=== PATIENT | female | born 1955 | race Caucasian/White ===

== ENCOUNTER 2017-07-24 07:20 | Emergency (ER) | payer OTHER ==
[2017-07-24 07:37] VITALS: BMI 22.8
[2017-07-24] MEDS ORDERED: SODIUM CHLORIDE 1,000 ML IV STA (08:14)
[2017-07-24] MEDS ORDERED: ACETAMINOPHEN 1000 MG/100 ML VIAL (NON FORMULARY) IVPB ONE (08:14)
[2017-07-24] MEDS ORDERED: ACETAMINOPHEN INJECTION 100 ML IVPB ONE (08:15)
[2017-07-24 08:38] LABS: BASO % 0.8 % (0-2.0); EOS % 4.7 % (0-4.5); HEMATOCRIT 47.9 % (32.4-45.2); HEMOGLOBIN 16.6 GM/dL (10.7-15.3); LYMPH % 19.4 % (8-40); MCH 28.5 pg (25.7-33.7); MCHC 34.6 g/dl (32.0-36.0); MEAN CELL VOLUME 82.4 fl (80-96); MEAN PLT VOLUME 7.9 fl (7.5-11.1); MONO % 11.4 % (3.8-10.2); NEUT % 63.7 % (42.8-82.8); PLATELET COUNT 173 K/MM3 (134-434); RBC 5.81 M/mm3 (3.60-5.2); RDW 13.7 % (11.6-15.6); WHITE BLOOD COUNT 8.8 K/mm3 (4.0-10.0)
[2017-07-24 09:03] LABS: ALBUMIN 3.9 g/dl (3.4-5.0); ALK PHOS 143 U/L (45-117); ANION GAP 14 (8-16); BILIRUBIN,TOTAL 0.7 mg/dL (0.2-1.0); BLOOD UREA NITROGEN 12 mg/dL (7-18); CALCIUM 9.4 mg/dL (8.5-10.1); CHLORIDE 104 mmol/L (98-107); CO2 22 mmol/L (21-32); GLUCOSE,RANDOM 123 mg/dL (74-106); POTASSIUM 3.7 mmol/L (3.5-5.1); SGOT/AST 22 U/L (15-37); SGPT/ALT 29 U/L (12-78); SODIUM 140 mmol/L (136-145); TOT PROT 8.2 g/dl (6.4-8.2)
--- NOTE | 2017-07-24 09:22 | PDOC ---
History of Present Illness - General Chief Complaint: Cold Symptoms Stated Complaint: COLD SYMPTOMS Time Seen by Provider: 07/24/17 07:48 History Source: Patient Exam Limitations: No Limitations - History of Present Illness Initial Comments: 07/24/17 08:44 62-year-old female presents with headache, sore throat, myalgia, chills and productive cough which she describes as yellowish phlegm worsened in the a.m. hours for the past 2 days. Patient states is not taking pain for the above and decided come to the ER. Patient denies chest pain but does complain of bilateral rib pain worsened with coughing and deep breathing. Patient denies recent travel, recent illness and states did have 2 grandchildren with similar symptoms last week. Patient denies shortness of breath, visual changes, dizziness, or inability to eat. Patient also has no urinary or bowel complaints. Timing/Duration: reports: constant Severity: reports: moderate Possible Cause: Yes: no prior episodes Modifying Factors: improves with: coughing Associated Symptoms: reports: chest pain/soreness, cough, fever/chills, headache , muscle aches, sore throat (mild) Past History - Past Medical History Allergies/Adverse Reactions: Allergies Allergy/AdvReac Type Severity Reaction Status Date / Time acetaminophen [From Percocet] Allergy Verified 07/24/17 07:31 oxycodone AdvReac Intermediate Nausea Verified 07/24/17 07:26 Home Medications: Ambulatory Orders Levothyroxine [Synthroid -] 25 mcg PO DAILY 11/09/14 Gabapentin [Neurontin -] 300 mg PO Q8H 03/28/17 Meloxicam [Mobic] 7.5 mg PO BID 03/28/17 Nortriptyline HCl [Pamelor -] 25 mg PO HS 03/28/17 Ergocalciferol (Vitamin D2) [Vitamin D2] 50,000 unit PO Q7D 06/08/17 Medical Marijuana [Medical Marijuana Oil] 1 cap PO DAILY PRN 06/08/17 Anemia: No Asthma: Yes Cancer: No Cardiac Disorders: No CVA: No COPD: No CHF: No DVT: No Dementia: No Diabetes: No Dialysis: No GI Disorders: No Disorders: No HTN: No Hypercholesterolemia: No Kidney Stones: No Liver Disease: No Psychiatric Problems: No Seizures: No Thyroid Disease: Yes (on meds) Lung CA: No - Surgical History Abdominal Surgery: No Appendectomy: No Cardiac Surgery: Yes (left cataract left eye 11/02) Cholecystectomy: Yes Lung Surgery: No Neurologic Surgery: No Orthopedic Surgery: Yes (RIGHT SHOULDER, cervical fusion 2011) - Immunization History Immunization Up to Date: Yes - Suicide/Smoking/Psychosocial Hx Smoking History: Never smoked Have you smoked in the past 12 months: No Information on smoking cessation initiated: No Hx Alcohol Use: No Drug/Substance Use Hx: No Substance Use Type: None Hx Substance Use Treatment: No Patient Lives Alone: No Respiratory Specific PMHX - Complaint Specific PMHX Bronchitis: No Review of Systems - Review of Systems Able to Perform ROS?: Yes Constitutional: Yes: Chills, Weakness HEENTM: Yes: Throat Pain Respiratory: Yes: Cough, Productive cough Cardiac (ROS): No: Symptoms Reported ABD/GI: No: Symptoms Reported : No: Symptoms Reported Musculoskeletal: Yes: Back Pain, Joint Pain Integumentary: No: Symptoms Reported Neurological: Yes: Headache *Physical Exam - Vital Signs Last Vital Signs Temp Pulse Resp BP Pulse Ox 98.6 F 109 H 17 128/92 98 07/24/17 08:04 07/24/17 08:04 07/24/17 08:04 07/24/17 08:04 07/24/17 08:04 - Physical Exam General Appearance: Yes: Nourished, Appropriately Dressed. No: Apparent Distress HEENT: positive: EOMI, [place], TMs Normal, Pharynx Normal (dry) Neck: positive: Normal Thyroid, Supple. negative: Lymphadenopathy (R), Lymphadenopathy (L) Respiratory/Chest: positive: Lungs Clear (left lobe), Other (coarse breath to right base). negative: Respiratory Distress, Accessory Muscle Use, Wheezing Cardiovascular: positive: Regular Rhythm, Tachycardia. negative: Murmur Gastrointestinal/Abdominal: positive: Soft. negative: Tenderness Extremity: positive: Normal Capillary Refill Integumentary: positive: Normal Color, Warm, Moist Neurologic: positive: Motor Strength 5/5 (ambulatory) ED Treatment Course - LABORATORY CBC & Chemistry Diagram: 07/24/17 08:20 07/24/17 08:14 - RADIOLOGY Radiology Studies Ordered: Category Date Time Status CHEST PA & LAT [RAD] Stat Radiology 07/24/17 08:15 Ordered - Medications Given in the ED: ED Medications Discontinued Medications Generic Name Dose Route Start Last Admin Trade Name Freq PRN Reason Stop Dose Admin Acetaminophen 1,000 mg 07/24/17 08:14 07/24/17 08:17 Ofirmev Injection - IVPB 07/24/17 08:15 1,000 mg ONCE ONE Administration Medical Decision Making - Medical Decision Making 07/24/17 07:55 I complaints but was found to be slightly tachycardic and with coarse breath sounds to right lower lobe. Patient ordered for labs, IV fluids IV Tylenol and chest x-ray. We will check vital shortly. 07/24/17 10:42 Laboratory Tests 07/24/17 07/24/17 07/24/17 08:14 08:20 09:38 WBC 8.8 D Hgb 16.6 H Hct 47.9 H Plt Count 173 Neutrophils % 63.7 Sodium 140 Potassium 3.7 Chloride 104 Carbon Dioxide 22 Anion Gap 14 BUN 12 Creatinine 1.0 Random Glucose 123 H Calcium 9.4 AST 22 ALT 29 Urine Ketones Negative Urine Blood Negative Ur Leukocyte Esterase 1+ H Urine WBC (Auto) 8 Urine RBC (Auto) 4 Chest x-ray negative for acute findings. Patient has no urinary complaints. Will send urine culture. Patient's vitals improved. Patient to be discharged home with Tamiflu and will be treated empirically for influenza. 07/24/17 10:43 Selected Entries 07/24/17 09:56 Temperature 98.7 F Pulse Rate [ 85 Left] Respiratory 17 Rate Blood Pressure 111/58 [Right] O2 Sat by Pulse 98 Oximetry (%) *DC/Admit/Observation/Transfer Diagnosis at time of Disposition: Influenza-like illness - Discharge Dispostion Disposition: HOME Condition at time of disposition: Improved - Referrals Referrals: Dionne Ghosh [Primary Care Provider] - - Patient Instructions Printed Discharge Instructions: DI for Influenza -- Adult Additional Instructions: Please take Tamiflu as prescribed until completed. Please take Tylenol Motrin for fever and discomfort. Drink plenty of fluids and rest for the next 2 days. - Post Discharge Activity
[2017-07-24 10:11] LABS: URINE APPEARANCE CLEAR; URINE BILIRUBIN NEGATIVE (NEGATIVE); URINE BLOOD NEGATIVE (NEGATIVE); URINE COLOR YELLOW; URINE GLUCOSE (UA) NEGATIVE (NEGATIVE); URINE KETONE NEGATIVE (NEGATIVE); URINE NITRITE NEGATIVE (NEGATIVE); URINE PROTEIN NEGATIVE (NEGATIVE); URINE UROBILINOGEN NEGATIVE mg/dL (0.2-1.0)
[2017-07-24 10:12] LABS: URINE LEUK ESTERASE 1+ (NEGATIVE)
[2017-07-24 10:13] LABS: EPI CELLS RARE /HPF (FEW); URINE MUCUS RARE
[2017-07-24 11:21] VITALS: BP 116/63; PULSE 87; TEMP 98.6
== END 2017-07-24 11:17 | disposition home or self-care (01) ==
LOC: JER 07:20
PROC: 3E033NZ Introduction of Analgesics, Hypnotics, Sedatives into Peripheral Vein, Percutaneous Approach (ICD-10-PCS; principal; 2017-07-24)
PROC: 3E0337Z Introduction of Electrolytic and Water Balance Substance into Peripheral Vein, Percutaneous Approach (ICD-10-PCS; 2017-07-24)
DX: J11.1 Influenza due to unidentified influenza virus with other respiratory manifestations (principal)
CPT/HCPCS: 36415; 71046-TC-FY; 80053; 81003; 81015; 85025; 87086; 99284-25

== ENCOUNTER → 2018-04-03 | Day surgery (SDC) | payer OTHER | END | disposition home or self-care (01) | LOC: JRADIR 09:38 → JRADMRI 09:38 → EDSTATUS 10:00 | PROVIDERS: ATTEND Orthopaedic Surgery Hand Surgery | PROC: BP28YZZ Computerized Tomography (CT Scan) of Right Shoulder using Other Contrast (ICD-10-PCS; principal; 2018-04-03) | DX: M25.511 Pain in right shoulder (principal) | CPT/HCPCS: 23350; 73040-TC-FY; 73200-TC-RT ==

== ENCOUNTER 2018-05-26 00:32 | Emergency (ER) | payer OTHER ==
--- NOTE | 2018-05-26 00:46 | PDOC ---
History of Present Illness - General Stated Complaint: EAR PAIN Time Seen by Provider: 05/26/18 00:43 History Source: Patient Exam Limitations: No Limitations - History of Present Illness Initial Comments: 05/26/18 00:55 Best Contact: PCP:joseph Pmhx: Hypothyroid Pshx: Right shoulder arthroscopy, anterior cervical discectomy fusion and plating, lumbar discectomy, appendectomy laparoscopic cholecystectomy Allergies:Tylenol/oxycodone/hives FH:0 63-year-old female presents to the emergency department complaining of right ear pain 2 days. Pain is described as 4/10 dull constant nonradiating discomfort without fever, chills, nausea/vomiting, facial pains, rhinorrhea, nasal congestion, sore throat, chest pain, shortness of breath. Patient is a nondiabetic. Pt denies recent swimming or illness. Past History - Past Medical History Allergies/Adverse Reactions: Allergies Allergy/AdvReac Type Severity Reaction Status Date / Time acetaminophen [From Percocet] Allergy Verified 05/26/18 01:09 oxycodone AdvReac Intermediate Nausea Verified 05/26/18 01:09 Home Medications: Ambulatory Orders Levothyroxine [Synthroid -] 25 mcg PO DAILY 11/09/14 Medical Marijuana [Medical Marijuana Oil] 1 cap PO DAILY PRN 06/08/17 Diclofenac Sodium [Voltaren] 2 gm TP TID PRN #3 tube 03/14/18 Docusate Sodium [Colace -] 100 mg PO TID #90 capsule 03/14/18 Ergocalciferol (Vitamin D2) [Vitamin D2] 50,000 unit PO Q7D #4 capsule 03/14/18 Meloxicam [Mobic] 7.5 mg PO BID #60 tablet 03/14/18 Nortriptyline HCl [Pamelor -] 50 mg PO HS #30 capsule 03/14/18 Amoxicillin - [Amoxicillin 500mg Capsule -] 500 mg PO BID #14 capsule 05/26/18 Ofloxacin Otic [Floxin Otic -] 10 drop OS DAILY #100 drops 05/26/18 Anemia: No Asthma: Yes Cancer: No Cardiac Disorders: No CVA: No COPD: No CHF: No DVT: No Dementia: No Diabetes: No Dialysis: No GI Disorders: No Disorders: No HTN: No Hypercholesterolemia: No Kidney Stones: No Liver Disease: No Psychiatric Problems: No Seizures: No Thyroid Disease: Yes (on meds) Lung CA: No - Surgical History Abdominal Surgery: No Appendectomy: No Cardiac Surgery: Yes (left cataract left eye 11/02) Cholecystectomy: Yes Lung Surgery: No Neurologic Surgery: No Orthopedic Surgery: Yes (RIGHT SHOULDER, cervical fusion 2011) - Immunization History Immunization Up to Date: Yes - Suicide/Smoking/Psychosocial Hx Smoking History: Never smoked Have you smoked in the past 12 months: No Hx Alcohol Use: No Drug/Substance Use Hx: No Substance Use Type: None Hx Substance Use Treatment: No Review of Systems - Review of Systems Able to Perform ROS?: Yes Comments:: 05/26/18 00:53 GENERAL: Well developed, well nourished. Awake and alert. No acute distress. HEENT: Right ear ache Normocephalic, atraumatic. PERRLA, EOMI. No conjunctival pallor. Sclera are non- icteric. Moist mucous membranes. Oropharynx is clear. NECK: Supple. Full ROM. No JVD. Carotid pulses 2+ and symmetric, without bruits. No thyromegaly. No lymphadenopathy. CARDIOVASCULAR: Regular rate and rhythm. No murmurs, rubs, or gallops. Distal pulses are 2+ and symmetric. PULMONARY: No evidence of respiratory distress. Lungs clear to auscultation bilaterally. No wheezing, rales or rhonchi. ABDOMINAL: Soft. Non-tender. Non-distended. No rebound or guarding. No organomegaly. Normoactive bowel sounds. SKIN: Warm and dry. Normal capillary refill. No rashes. No jaundice. Is the patient limited Tajik proficient: No *Physical Exam - Physical Exam Comments: 05/26/18 00:52 GENERAL: Well developed, well nourished. Awake and alert. No acute distress. HEENT: Right canal slight swelling; TM bulging/erythema Normocephalic, atraumatic. PERRLA, EOMI. No conjunctival pallor. Sclera are non- icteric. Moist mucous membranes. Oropharynx is clear. NECK: Supple. Full ROM. No JVD. Carotid pulses 2+ and symmetric, without bruits. No thyromegaly. No lymphadenopathy. SKIN: Warm and dry. Normal capillary refill. No rashes. No jaundice. Procedure: earwick 1/2" iodoform packing *DC/Admit/Observation/Transfer Diagnosis at time of Disposition: Otitis externa Qualifiers: Otitis externa type: noninfectious Noninfectious otitis externa type: other type Chronicity: acute Laterality: right Qualified Code(s): H60.591 - Other noninfective acute otitis externa, right ear ROM (right otitis media) Qualifiers: Otitis media type: unspecified Qualified Code(s): H66.91 - Otitis media, unspecified, right ear - Discharge Dispostion Disposition: HOME Condition at time of disposition: Stable Decision to Admit order: No - Prescriptions Prescriptions: Amoxicillin - [Amoxicillin 500mg Capsule -] 500 mg PO BID #14 capsule Ofloxacin Otic [Floxin Otic -] 10 drop OS DAILY #100 drops - Referrals Referrals: Sd Chen MD [Primary Care Provider] - Ho Fuller MD [Staff Physician] - - Patient Instructions Printed Discharge Instructions: Otitis Externa, Middle Ear Infection Additional Instructions: Follow with your physician or the ENT noted on your discharge this week Return back to the emergency department for severe/persistent or worsening symptoms or any concerns take Motrin every 4-6 hours as needed for pain or fever - Post Discharge Activity
[2018-05-26 01:09] VITALS: BP 132/86; PULSE 94; TEMP 97.8; BMI 24.9
[2018-05-26] MEDS ORDERED: OFLOXACIN 0.3% OTIC SOLUTION 5 ML BOTTLE AD ONE (01:18)
== END 2018-05-26 02:16 | disposition home or self-care (01) ==
LOC: JER 00:32
DX: H60.501 Unspecified acute noninfective otitis externa, right ear (principal); H66.91 Otitis media, unspecified, right ear
CPT/HCPCS: 99281-25

== ENCOUNTER 2018-11-18 22:29 | Emergency (ER) | payer OTHER ==
[2018-11-18 22:33] VITALS: BMI 25.0
--- NOTE | 2018-11-19 00:31 | PDOC ---
History of Present Illness - General Chief Complaint: Vomiting/Diarrhea Stated Complaint: VOMITING Time Seen by Provider: 11/19/18 00:31 History Source: Patient - History of Present Illness Initial Comments: 11/19/18 00:33 63 year old female with nausea, vomiting and diarrhea after qatari food today with epigastric pain. + dizziness, denies fever/ chills, headache, urinary symptoms PMHX: hypothyroid Past History - Past Medical History Allergies/Adverse Reactions: Allergies Allergy/AdvReac Type Severity Reaction Status Date / Time acetaminophen [From Percocet] Allergy Verified 11/18/18 22:33 oxycodone AdvReac Intermediate Nausea Verified 11/18/18 22:33 Home Medications: Ambulatory Orders Levothyroxine [Synthroid -] 25 mcg PO DAILY 11/09/14 Medical Marijuana [Medical Marijuana Oil] 1 cap PO DAILY PRN 06/08/17 Ergocalciferol (Vitamin D2) [Vitamin D2] 50,000 unit PO Q7D #4 capsule 03/14/18 Diclofenac Sodium [Voltaren] 2 gm TP TID PRN #3 tube 08/08/18 Docusate Sodium [Colace -] 100 mg PO TID #90 capsule 08/08/18 Meloxicam [Mobic (Nf) -] 15 mg PO DAILY #30 tablet 08/08/18 Mirtazapine [Remeron -] 30 mg PO HS 08/08/18 Anemia: No Asthma: Yes Cancer: No Cardiac Disorders: No CVA: No COPD: No CHF: No DVT: No Dementia: No Diabetes: No Dialysis: No GI Disorders: No Disorders: No HTN: No Hypercholesterolemia: No Kidney Stones: No Liver Disease: No Psychiatric Problems: No Seizures: No Thyroid Disease: Yes (on meds) Lung CA: No - Surgical History Abdominal Surgery: No Appendectomy: No Cardiac Surgery: Yes (left cataract left eye 11/02) Cholecystectomy: Yes Lung Surgery: No Neurologic Surgery: No Orthopedic Surgery: Yes (RIGHT SHOULDER, cervical fusion 2011) - Immunization History Immunization Up to Date: Yes - Suicide/Smoking/Psychosocial Hx Smoking History: Never smoked Have you smoked in the past 12 months: No Hx Alcohol Use: No Drug/Substance Use Hx: No Substance Use Type: None Hx Substance Use Treatment: No Review of Systems - Review of Systems Able to Perform ROS?: Yes Is the patient limited Tristanian proficient: No Constitutional: No: Symptoms Reported, See HPI, Chills, Diaphoresis, Fever, Loss of Appetite, Malaise, Night Sweats, Weakness, Weight Stable, Unintentional Wgt. Loss, Unexplained wgt Loss, Other ABD/GI: Yes: Diarrhea, Nausea, Vomiting, Abdominal cramping : No: Symptoms Reported, See HPI, Burning, Dysuria, Discharge, Frequency, Flank Pain, Hematuria, Incontinence, Pain, Urgency, Testicular Mass, Testicular Swelling, Lesions, Testicular Pain, Other Musculoskeletal: No: Symptoms Reported, See HPI, Back Pain, Gout, Joint Pain, Joint Swelling, Muscle Pain, Muscle Weakness, Neck Pain, Joint Stiffness, Other *Physical Exam - Vital Signs Last Vital Signs Temp Pulse Resp BP Pulse Ox 97.5 F L 79 18 117/74 99 11/18/18 22:31 11/18/18 22:31 11/18/18 22:31 11/18/18 22:31 11/18/18 22:31 - Physical Exam General Appearance: Yes: Appropriately Dressed Respiratory/Chest: positive: Lungs Clear, Normal Breath Sounds Cardiovascular: positive: Regular Rhythm, Regular Rate Gastrointestinal/Abdominal: positive: Tender (epigastric area), Soft, Increased Bowel Sounds Extremity: positive: Normal Capillary Refill, Normal Inspection, Normal Range of Motion, Other (dry lips) Integumentary: positive: Normal Color, Dry, Warm Neurologic: positive: Fully Oriented, Alert ED Treatment Course - LABORATORY CBC & Chemistry Diagram: 11/19/18 00:45 11/19/18 00:45 Progress Note - Progress Note Progress Note: A: gastroenteritis; dehydration P: labs ivf zofran famotidine EKG Medical Decision Making - Medical Decision Making 11/19/18 03:16 tolerated PO. reports feeling better. will d.c home *DC/Admit/Observation/Transfer Diagnosis at time of Disposition: Gastroenteritis, Dehydration symptoms - Discharge Dispostion Disposition: HOME Condition at time of disposition: Improved - Referrals Referrals: Sd Chen MD [Primary Care Provider] - - Patient Instructions Printed Discharge Instructions: Viral Gastroenteritis Additional Instructions: drink plenty of fluids start a BRAT ( bananas, rice apples toast) follow up with your doctor return to the ER if symptoms worsen Additional Instructions: * Please call your personal physician to report your Emergency Department visit and to report your progress, if any. * If there is no improvement in symptoms in 2 days call your physician. * Return to the Emergency Department for any worsening symptoms. - Post Discharge Activity Forms/Work/School Notes: Back to Work
--- NOTE | 2018-11-19 00:34 | PDOC ---
*Physical Exam - Vital Signs Last Vital Signs Temp Pulse Resp BP Pulse Ox 97.5 F L 79 18 117/74 99 11/18/18 22:31 11/18/18 22:31 11/18/18 22:31 11/18/18 22:31 11/18/18 22:31 ED Treatment Course - LABORATORY CBC & Chemistry Diagram: 11/19/18 00:45 11/19/18 00:45 Medical Decision Making - Medical Decision Making 11/19/18 00:34 Patient seen by the advanced practice provider under my direct supervision. Ancillary testing reviewed as necessary. I agree with plan as outlined by the advanced practice provider. *DC/Admit/Observation/Transfer Diagnosis at time of Disposition: Gastroenteritis, Dehydration symptoms - Discharge Dispostion Disposition: HOME Condition at time of disposition: Improved - Referrals Referrals: Sd Chen MD [Primary Care Provider] - - Patient Instructions Printed Discharge Instructions: Viral Gastroenteritis Additional Instructions: drink plenty of fluids start a BRAT ( bananas, rice apples toast) follow up with your doctor return to the ER if symptoms worsen Additional Instructions: * Please call your personal physician to report your Emergency Department visit and to report your progress, if any. * If there is no improvement in symptoms in 2 days call your physician. * Return to the Emergency Department for any worsening symptoms. - Post Discharge Activity Forms/Work/School Notes: Back to Work
[2018-11-19] MEDS ORDERED: SODIUM CHLORIDE 1,000 ML IV STA (00:36)
[2018-11-19] MEDS ORDERED: FAMOTIDINE 20 MG/50 ML IVPB 20 MG/50 ML MG IVPB ONE ×2 (00:37→00:52)
[2018-11-19] MEDS ORDERED: ONDANSETRON 4 MG/2 ML VIAL IVPUSH ONE (00:45)
[2018-11-19] MEDS ORDERED: ONDANSETRON 4 MG/2 ML VIAL ONE (00:52)
[2018-11-19 01:00] LABS: BASO % 0.5 % (0-2.0); EOS % 1.9 % (0-4.5); HEMATOCRIT 45.9 % (32.4-45.2); HEMOGLOBIN 15.7 GM/dL (10.7-15.3); LYMPH % 6.6 % (8-40); MCH 28.2 pg (25.7-33.7); MCHC 34.1 g/dl (32.0-36.0); MEAN CELL VOLUME 82.7 fl (80-96); MEAN PLT VOLUME 8.2 fl (7.5-11.1); MONO % 6.9 % (3.8-10.2); NEUT % 84.1 % (42.8-82.8); PLATELET COUNT 182 K/MM3 (134-434); RBC 5.55 M/mm3 (3.60-5.2); RDW 14.1 % (11.6-15.6); WHITE BLOOD COUNT 9.5 K/mm3 (4.0-10.0)
[2018-11-19 01:34] LABS: ALBUMIN 4.1 g/dl (3.4-5.0); BILIRUBIN,TOTAL 0.7 mg/dL (0.2-1); BLOOD UREA NITROGEN 30.4 mg/dL (7-18); CALCIUM 9.1 mg/dL (8.5-10.1); CREATININE 0.9 mg/dL (0.55-1.3); POTASSIUM 4.8 mmol/L (3.5-5.1); TOT PROT 7.8 g/dl (6.4-8.2)
[2018-11-19 02:20] LABS: PH,URINE 5.5 (5.0-8.0); URINE APPEARANCE CLEAR; URINE BILIRUBIN NEGATIVE (NEGATIVE); URINE COLOR YELLOW; URINE GLUCOSE (UA) NEGATIVE (NEGATIVE); URINE KETONE NEGATIVE (NEGATIVE); URINE LEUK ESTERASE NEGATIVE (NEGATIVE); URINE NITRITE NEGATIVE (NEGATIVE); URINE PROTEIN NEGATIVE (NEGATIVE); URINE UROBILINOGEN 0.2 mg/dL (0.2-1.0)
[2018-11-19 02:30] VITALS: BP 111/74; PULSE 80; TEMP 98.3
--- NOTE | 2018-11-19 13:54 | EKG ---
Test Reason : Blood Pressure : / mmHG Vent. Rate : 073 BPM Atrial Rate : 073 BPM P-R Int : 144 ms QRS Dur : 066 ms QT Int : 408 ms P-R-T Axes : 050 018 036 degrees QTc Int : 449 ms NORMAL SINUS RHYTHM POSSIBLE LEFT ATRIAL ENLARGEMENT BORDERLINE ECG NO PREVIOUS ECGS AVAILABLE Confirmed by MD SEPIDEH, ANDRÉS ([id number]) on 11/19/2018 1:54:04 PM Referred By: Confirmed By:ANDRÉS BUNN MD
== END 2018-11-19 03:59 | disposition home or self-care (01) ==
LOC: JER 22:29
PROC: 3E0337Z Introduction of Electrolytic and Water Balance Substance into Peripheral Vein, Percutaneous Approach (ICD-10-PCS; principal; 2018-11-18)
PROC: 3E033GC Introduction of Other Therapeutic Substance into Peripheral Vein, Percutaneous Approach (ICD-10-PCS; 2018-11-18)
PROC: 3E033GC Introduction of Other Therapeutic Substance into Peripheral Vein, Percutaneous Approach (ICD-10-PCS; 2018-11-18)
DX: K52.9 Noninfective gastroenteritis and colitis, unspecified (principal); E86.0 Dehydration
CPT/HCPCS: 36415; 80053; 81003; 83690; 85025; 93005; 93010; 96361; 96365; 96375; 99282-25; J7030

== ENCOUNTER 2020-06-16 15:33 | Emergency (ER) | payer OTHER ==
[2020-06-16 15:56] VITALS: BP 135/70; PULSE 73; BMI 24.1
[2020-06-16] MEDS ORDERED: CYCLOBENZAPRINE HCL 10 MG TABLET (FP) PO ONE (17:30)
[2020-06-16] MEDS ORDERED: KETOROLAC TROMETHAMINE 60 MG/2 ML VIAL IM ONE (17:30)
[2020-06-16] MEDS ORDERED: KETOROLAC TROMETHAMINE 60 MG/2 ML VIAL ONE (17:35)
[2020-06-16] MEDS ORDERED: CYCLOBENZAPRINE HCL 10 MG TABLET (FP) ONE (17:35)
== END 2020-06-16 17:45 | disposition home or self-care (01) ==
LOC: JERFT 15:33
PROC: 3E0233Z Introduction of Anti-inflammatory into Muscle, Percutaneous Approach (ICD-10-PCS; principal; 2020-06-16)
DX: S16.1XXA Strain of muscle, fascia and tendon at neck level, initial encounter (principal)
CPT/HCPCS: 99284-25

== ENCOUNTER 2021-04-15 09:20 | Emergency (ER) | payer OTHER ==
[2021-04-15 09:54] VITALS: BP 116/79; PULSE 84; TEMP 98.4; BMI 23.5
[2021-04-15] MEDS ORDERED: FAMOTIDINE 20 MG/50 ML IVPB 20 MG/50 ML MG IVPB ONE ×2 (10:11→10:37)
[2021-04-15] MEDS ORDERED: ONDANSETRON 4 MG/2 ML VIAL IVPUSH ONE (10:11)
[2021-04-15] MEDS ORDERED: SODIUM CHLORIDE 0.9% 500 ML INFUS.BAG IV ONE (10:11)
[2021-04-15] MEDS ORDERED: ONDANSETRON 4 MG/2 ML VIAL ONE (10:37)
[2021-04-15 11:39] LABS: BASO % 0.3 % (0-2.0); HEMATOCRIT 45.5 % (32.4-45.2); HEMOGLOBIN 15.5 GM/dL (10.7-15.3); MCH 28.4 pg (25.7-33.7); MEAN CELL VOLUME 83.5 fl (80-96); MEAN PLT VOLUME 8.4 fl (7.5-11.1); MONO % 13.7 % (3.8-10.2); PLATELET COUNT 160 10^3/uL (134-434); RBC 5.45 M/mm3 (3.60-5.2); RDW 13.1 % (11.6-15.6); WHITE BLOOD COUNT 8.8 K/mm3 (4.0-10.0)
[2021-04-15 12:28] LABS: ALBUMIN 3.8 g/dl (3.4-5.0); BILIRUBIN,TOTAL 0.6 mg/dL (0.2-1); BLOOD UREA NITROGEN 11.5 mg/dL (7-18); CALCIUM 9.2 mg/dL (8.5-10.1); CREATININE 0.9 mg/dL (0.55-1.3); TOT PROT 7.8 g/dl (6.4-8.2)
== END 2021-04-15 13:17 | disposition home or self-care (01) ==
LOC: JER 09:20
PROC: 3E033GC Introduction of Other Therapeutic Substance into Peripheral Vein, Percutaneous Approach (ICD-10-PCS; principal; 2021-04-15)
PROC: 3E033GC Introduction of Other Therapeutic Substance into Peripheral Vein, Percutaneous Approach (ICD-10-PCS; 2021-04-15)
DX: R51.9 Headache, unspecified (principal); M79.10 Myalgia, unspecified site; R19.7 Diarrhea, unspecified; Z11.52 Encounter for screening for COVID-19
CPT/HCPCS: 36415; 80053; 83690; 85025; 87804; 99284-25; C9803; U0003; U0005

== ENCOUNTER 2021-08-25 09:43 | Emergency (ER) | payer OTHER ==
[2021-08-25 09:59] VITALS: BP 123/81; PULSE 78; TEMP 97.9; BMI 22.7
[2021-08-25] MEDS ORDERED: diazePAM 2 MG TABLET PO ONE (10:37)
[2021-08-25] MEDS ORDERED: LIDOCAINE 5% TOPICAL PATCH TP ONE (10:37)
[2021-08-25] MEDS ORDERED: diazePAM 2 MG TABLET ONE (10:41)
[2021-08-25] MEDS ORDERED: LIDOCAINE 5% TOPICAL PATCH ONE (10:41)
[2021-08-25] MEDS ORDERED: LIDOCAINE PATCH REMOVAL MC ONE (22:00)
== END 2021-08-25 11:37 | disposition home or self-care (01) ==
LOC: JER 09:43
DX: M54.2 Cervicalgia (principal); M62.838 Other muscle spasm
CPT/HCPCS: 99283-25

== ENCOUNTER 2021-10-19 04:08 | Day surgery (SDC) | payer OTHER ==
[2021-10-13 17:57] VITALS: BMI 22.7
[2021-10-19] MEDS ORDERED: LIDOCAINE HCL 1%, 10 MG/ML (20ML VIAL) ONE (07:33)
[2021-10-19] MEDS ORDERED: FENTANYL CITRATE/PF 50 MCG/ML VIAL ONE ×2 (07:55→10:33)
[2021-10-19] MEDS ORDERED: MIDAZOLAM HCL 2 MG/2 ML SINGLE DOSE VIAL ONE (07:55)
[2021-10-19] MEDS ORDERED: PROPOFOL 20 ML ONE ×6 (07:55→10:27)
[2021-10-19] MEDS ORDERED: ePHEDrine SULFATE 50 MG/1 ML AMPULE ONE (07:55)
[2021-10-19] MEDS ORDERED: SUCCINYLCHOLINE CHLORIDE 200 MG/10 ML SYRINGE ONE (07:55)
[2021-10-19] MEDS ORDERED: ceFAZolin 2 GRAM PREMIX BAG IVPB ONE (08:15)
[2021-10-19] MEDS ORDERED: BUPIVACAINE HCL/PF 0.5% (5MG/ML) 10 ML VIAL IJ ONE ×2 (08:33→11:03)
[2021-10-19] MEDS ORDERED: LIDOCAINE HCL 1%, 10 MG/ML (20ML VIAL) INF ONE (08:33)
[2021-10-19] MEDS ORDERED: ONDANSETRON 4 MG/2 ML VIAL IVPUSH PRN (09:23)
[2021-10-19] MEDS ORDERED: oxyCODONE HCL 5 MG TABLET PO PRN ×2 (09:23)
[2021-10-19] MEDS ORDERED: DEXAMETHASONE SOD PHOSPHATE 4 MG/1 ML VIAL ONE (09:26)
[2021-10-19] MEDS ORDERED: KETOROLAC TROMETHAMINE 30 MG/1 ML VIAL ONE (09:26)
[2021-10-19] MEDS ORDERED: ceFAZolin SODIUM 1 GM VIAL ONE (09:26)
[2021-10-19] MEDS ORDERED: LACTATED RINGERS SOLUTION 1,000 ML IV SCH (09:30)
[2021-10-19 15:06] VITALS: BP 108/68; PULSE 68; TEMP 98
== END 2021-10-19 15:23 | disposition home or self-care (01) ==
LOC: JASU-SURG 04:08
PROVIDERS: ATTEND Podiatrist Foot & Ankle Surgery
PROC: 0QSP04Z Reposition Left Metatarsal with Internal Fixation Device, Open Approach (ICD-10-PCS; 2021-10-19)
PROC: 0QSP04Z Reposition Left Metatarsal with Internal Fixation Device, Open Approach (ICD-10-PCS; 2021-10-19)
PROC: 0QSP04Z Reposition Left Metatarsal with Internal Fixation Device, Open Approach (ICD-10-PCS; 2021-10-19)
PROC: 0SRQ0JZ Replacement of Left Toe Phalangeal Joint with Synthetic Substitute, Open Approach (ICD-10-PCS; 2021-10-19)
PROC: 0QSR04Z Reposition Left Toe Phalanx with Internal Fixation Device, Open Approach (ICD-10-PCS; principal; 2021-10-19 08:00)
DX: M20.12 Hallux valgus (acquired), left foot (principal); M77.42 Metatarsalgia, left foot; M79.672 Pain in left foot; M20.42 Other hammer toe(s) (acquired), left foot
CPT/HCPCS: 28285; 28298; 28308; C1713; 73630-TC-LT; 76000-TC-FY; 88304-TC; 88311-TC; 94760; 97116-GP

== ENCOUNTER 2022-04-22 09:36 | Emergency (ER) | payer OTHER ==
[2022-04-22 09:49] VITALS: RESP 18; TEMP 98.6; BMI 27.1
[2022-04-22] MEDS ORDERED: METOCLOPRAMIDE HCL INJECTION 10 MG/2 ML VIAL IVPUSH ONE (10:30)
[2022-04-22] MEDS ORDERED: diphenhydrAMINE HCL 25 MG CAPSULE (FP) PO ONE ×2 (10:30→11:03)
[2022-04-22] MEDS ORDERED: METOCLOPRAMIDE HCL INJECTION 10 MG/2 ML VIAL ONE (11:03)
[2022-04-22 11:22] VITALS: BP 117/69
[2022-04-22 11:24] LABS: HEMATOCRIT 47.2 % (32.4-45.2); MCH 27.6 pg (25.7-33.7); MCHC 33.9 g/dl (32.0-36.0); MEAN CELL VOLUME 81.5 fl (80-96); MEAN PLT VOLUME 7.7 fl (7.5-11.1); PLATELET COUNT 225 10^3/uL (134-434); RBC 5.79 M/mm3 (3.60-5.2); RDW 13.6 % (11.6-15.6); WHITE BLOOD COUNT 5.9 K/mm3 (4.0-10.0)
[2022-04-22 11:30] LABS: ACTIVATED PTT 33.7 SECONDS (25.2-36.5); PROTHROMBIN TIME (PATIENT) 11.5 SEC (9.7-13.0)
[2022-04-22 11:45] LABS: CALCIUM 9.8 mg/dL (8.5-10.1)
[2022-04-22 11:49] LABS: CREATININE 0.8 mg/dL (0.55-1.3)
[2022-04-22 11:51] LABS: BILIRUBIN,TOTAL 0.6 mg/dL (0.2-1)
[2022-04-22] MEDS ORDERED: IBUPROFEN 400 MG TABLET (FP) PO ONE ×2 (12:49→12:59)
[2022-04-22 13:19] VITALS: PULSE 62
== END 2022-04-22 13:23 | disposition home or self-care (01) ==
LOC: JER 09:36
PROC: 3E033GC Introduction of Other Therapeutic Substance into Peripheral Vein, Percutaneous Approach (ICD-10-PCS; principal; 2022-04-22)
DX: R51.9 Headache, unspecified (principal)
CPT/HCPCS: 0241U-QW; 36415; 70450-TC; 71046-TC-FY; 80053; 84484; 85027; 85610; 85730; 86850; 86900; 86901; 93005; 93010; 99285-25